=== PATIENT | female | born 1940 | race Caucasian/White ===

== ENCOUNTER 2021-07-04 14:22 | Emergency (ER) | payer MEDICARE, OTHER ==
[~2021-07-04] VITALS: Ht 149.9 cm; Wt 74.5 kg
[~2021-07-04 14:22] MED LIST: AMLO10TA PO; CLON0.1T PO; LEVO125T8 PO; LOSA50TA64 PO; METO100T14 PO; POTA-205 PO; SERT25TA PO
[2021-07-04 15:15] VITALS: BP 152/65
== END 2021-07-04 18:06 | disposition home or self-care (01) ==
LOC: ER 14:22
DX: I83.028 Varicose veins of left lower extremity with ulcer other part of lower leg (principal); L97.821 Non-pressure chronic ulcer of other part of left lower leg limited to breakdown of skin; B87.89 Myiasis of other sites; I87.2 Venous insufficiency (chronic) (peripheral); I10 Essential (primary) hypertension; Z85.038 Personal history of other malignant neoplasm of large intestine; Z72.89 Other problems related to lifestyle; Z79.899 Other long term (current) drug therapy
CPT/HCPCS: 99281